=== PATIENT | male | born 1980 | race African-American/Black ===

== ENCOUNTER 2022-06-14 17:23 | Emergency (ER) | payer SELFPAY ==
[2022-06-14] MEDS ORDERED: Ketorolac Tromethamine 30 MG/ML VIAL ONE ×2 (18:48→18:51)
[2022-06-14] MEDS ORDERED: Dexamethasone 10 MG/ML VIAL ONE (18:48)
== END 2022-06-14 20:02 | disposition home or self-care (01) ==
LOC: CSHERS 17:23
DX: M54.42 Lumbago with sciatica, left side (principal); F17.210 Nicotine dependence, cigarettes, uncomplicated
CPT/HCPCS: 93005; 96372; J1100; J1885